=== PATIENT | male | born 1940 | race Two or more races ===

== ENCOUNTER 2024-04-13 22:39 | Inpatient (IN) | payer MEDICARE, OTHER ==
[~2024-04-13] VITALS: Ht 177.8 cm; Wt 72.6 kg
[2024-04-13 23:34] LABS: APPEARANCE,URINE CLEAR (CLEAR); BILIRUBIN,URINE NEGATIVE (NEGATIVE); BLOOD, URINE NEGATIVE Ery/uL (NEGATIVE); COLOR,URINE YELLOW (YELLOW); KETONES,URINE NEGATIVE (NEGATIVE); LEUKOCYTE ESTERASE ,URINE NEGATIVE (NEGATIVE); NITRITE, URINE NEGATIVE (NEGATIVE); PROTEIN,URINE NEGATIVE (NEGATIVE); UGLUCOSE NEGATIVE (NEGATIVE); UROBILINOGEN,URINE 0.2 EU/dL (0.2)
[2024-04-14 00:09] LABS: INR 1.18 (0.91-1.10); PROTHROMBIN TIME 12.4 SECS (9.2-11.1)
[2024-04-14 00:11] LABS: BASOPHILS # (AUTO) 0.1 K/uL (0.0-0.2); BASOPHILS % (AUTO) 0.3 % (0.0-2.0); EOSINOPHILS % (AUTO) 0.1 % (0.0-6.0); HEMATOCRIT 44 % (39-51); HEMOGLOBIN 14.9 g/dL (13.5-17.5); LYMPHOCYTES # (AUTO) 0.6 K/uL (0.8-4.8); MEAN CORPUSCULAR HEMOGLOBIN 32 PG (26.0-33.0); MEAN CORPUSCULAR HGB CONC 34 g/dl (31.0-36.0); MEAN CORPUSCULAR VOLUME 93 fL (80-96); MONOCYTES # (AUTO) 2.1 K/uL (0.1-1.30); MONOCYTES % (AUTO) 11.4 % (2.0-12.0); NEUTROPHILS # (AUTO) 15.7 K/uL (1.8-8.9); NEUTROPHILS % (AUTO) 85.2 % (43.0-81.0); PLATELET COUNT (AUTO) 127 K/uL (150-450); RED CELL DISTRIBUTION WIDTH 13.3 % (11.5-15.0); WHITE BLOOD COUNT (AUTO) 18.5 K/uL (4.3-11.0)
[2024-04-14 00:15] LABS: MAGNESIUM 3.1 mg/dL (1.8-2.4); PHOSPHORUS 5.9 mg/dL (2.5-4.9)
[2024-04-14 00:19] LABS: ALBUMIN 3.1 g/dL (3.4-5.0); BILIRUBIN,DIRECT 0.4 mg/dL (0.0-0.2); BILIRUBIN,TOTAL 1.6 mg/dL (0.2-1.0); CALCIUM, SERUM 8.6 mg/dL (8.5-10.1); CREATININE 6.7 mg/dL (0.6-1.3); POTASSIUM 5.8 mmol/L (3.5-5.1); TOTAL PROTEIN, SERUM 6.9 g/dL (6.4-8.2)
[2024-04-14] MEDS: IV NS 0.9% 500 ML BAG IV ONE (00:39)
[2024-04-14] MEDS ORDERED: FINA5TAB11 PO (03:07)
[2024-04-14] MEDS ORDERED: TAMS-12 PO (03:07)
[2024-04-14 04:00] VITALS: BP 135/89; TEMP 97.9; O2SAT 94
[2024-04-14 05:03] VITALS: BP 135/89; TEMP 97.9; O2SAT 94
[2024-04-14] MEDS: IV NS 0.9% 1,000 ML IV PRN (05:48)
[2024-04-14] MEDS ORDERED: ONDANSETRON HCL/PF 4 MG/2 ML VIAL IVP PRN (06:00)
[2024-04-14] MEDS ORDERED: ACETAMINOPHEN 325 MG TABLET PO PRN (06:00)
[2024-04-14 07:25] LABS: BASOPHILS % (AUTO) 0.3 % (0.0-2.0); EOSINOPHILS # (AUTO) 0.2 K/uL (0.0-0.7); EOSINOPHILS % (AUTO) 1.5 % (0.0-6.0); HEMATOCRIT 39 % (39-51); HEMOGLOBIN 13.6 g/dL (13.5-17.5); LYMPHOCYTES % (AUTO) 8.8 % (20.0-44.0); MEAN CORPUSCULAR HEMOGLOBIN 32 PG (26.0-33.0); MEAN CORPUSCULAR HGB CONC 34 g/dl (31.0-36.0); MEAN CORPUSCULAR VOLUME 92 fL (80-96); MONOCYTES # (AUTO) 1.7 K/uL (0.1-1.30); MONOCYTES % (AUTO) 15.3 % (2.0-12.0); NEUTROPHILS # (AUTO) 8.4 K/uL (1.8-8.9); NEUTROPHILS % (AUTO) 74.1 % (43.0-81.0); PLATELET COUNT (AUTO) 130 K/uL (150-450); RED BLOOD CELL COUNT(AUTO) 4.27 MIL/uL (4.5-6.0); RED CELL DISTRIBUTION WIDTH 13.3 % (11.5-15.0); WHITE BLOOD COUNT (AUTO) 11.4 K/uL (4.3-11.0)
[2024-04-14 08:00] VITALS: BP 126/73; TEMP 97.9; O2SAT 94
[2024-04-14 08:01] LABS: CALCIUM, SERUM 8.9 mg/dL (8.5-10.1); CREATININE 4.4 mg/dL (0.6-1.3); MAGNESIUM 2.9 mg/dL (1.8-2.4); PHOSPHORUS 5.8 mg/dL (2.5-4.9); POTASSIUM 4.8 mmol/L (3.5-5.1)
[2024-04-14 09:08] LABS: EOSINOPHILS % (MANUAL) 1 % (0-4); LYMPHOCYTES % (MANUAL) 9 % (16-48); MONOCYTES % (MANUAL) 13 % (0-11.0); NEUTROPHILS % (MANUAL) 77 (42-76)
[2024-04-14 09:09] LABS: ANISOCYTOSIS 1+; PLATELET ESTIMATE DECREASED
[2024-04-14] MEDS: IV 1/2NS 1000 ML 1,000 ML IV PRN (13:36)
[2024-04-14] MEDS: ENOXAPARIN SODIUM 30 MG/0.3 ML DISP.SYRIN SQ SCH (13:36)
[2024-04-14 16:00] VITALS: BP 145/75; TEMP 98.2; O2SAT 95
[2024-04-14 18:13] LABS: CALCIUM, SERUM 8.7 mg/dL (8.5-10.1); CREATININE 2.7 mg/dL (0.6-1.3); POTASSIUM 4.3 mmol/L (3.5-5.1)
[2024-04-14 18:15] LABS: CREATININE, URINE 60.7 MG/DL (30.0-125.0); URINE TOTAL PROTEIN 23.3 mg/dL (0-11.9)
[2024-04-14 21:02] VITALS: BP 148/72; TEMP 97.9; O2SAT 93
[2024-04-15 00:43] VITALS: BP 154/85; TEMP 98.2; O2SAT 93
[2024-04-15 03:53] VITALS: BP 132/81; TEMP 98.1; O2SAT 94
[2024-04-15 06:41] LABS: BASOPHILS # (AUTO) 0.1 K/uL (0.0-0.2); BASOPHILS % (AUTO) 1.1 % (0.0-2.0); EOSINOPHILS # (AUTO) 0.4 K/uL (0.0-0.7); EOSINOPHILS % (AUTO) 5.2 % (0.0-6.0); HEMATOCRIT 40 % (39-51); HEMOGLOBIN 13.6 g/dL (13.5-17.5); LYMPHOCYTES # (AUTO) 1.3 K/uL (0.8-4.8); LYMPHOCYTES % (AUTO) 15.4 % (20.0-44.0); MEAN CORPUSCULAR HEMOGLOBIN 32 PG (26.0-33.0); MEAN CORPUSCULAR HGB CONC 34 g/dl (31.0-36.0); MEAN CORPUSCULAR VOLUME 93 fL (80-96); MONOCYTES # (AUTO) 1.3 K/uL (0.1-1.30); MONOCYTES % (AUTO) 15.1 % (2.0-12.0); NEUTROPHILS # (AUTO) 5.3 K/uL (1.8-8.9); NEUTROPHILS % (AUTO) 63.2 % (43.0-81.0); PLATELET COUNT (AUTO) 154 K/uL (150-450); RED BLOOD CELL COUNT(AUTO) 4.31 MIL/uL (4.5-6.0); RED CELL DISTRIBUTION WIDTH 13.4 % (11.5-15.0); WHITE BLOOD COUNT (AUTO) 8.4 K/uL (4.3-11.0)
[2024-04-15 07:17] LABS: ALBUMIN 2.6 g/dL (3.4-5.0); BILIRUBIN,TOTAL 1.2 mg/dL (0.2-1.0); CALCIUM, SERUM 8.5 mg/dL (8.5-10.1); CREATININE 1.7 mg/dL (0.6-1.3); MAGNESIUM 2.2 mg/dL (1.8-2.4); PHOSPHORUS 3.4 mg/dL (2.5-4.9); POTASSIUM 4.1 mmol/L (3.5-5.1); TOTAL PROTEIN, SERUM 6.3 g/dL (6.4-8.2)
[2024-04-15 08:00] VITALS: BP 138/75; TEMP 98.1; O2SAT 95
[2024-04-15 12:00] VITALS: BP 131/97; TEMP 98.1; O2SAT 94
[2024-04-15 16:00] VITALS: BP 126/80; TEMP 98.2; O2SAT 94
[2024-04-15 20:00] VITALS: BP 149/69; TEMP 97.9; O2SAT 95
[2024-04-16] VITALS: BP 159/82; TEMP 98.1; O2SAT 98
[2024-04-16 04:00] VITALS: BP 150/80; TEMP 97.7; O2SAT 98
[2024-04-16 07:09] LABS: PTH, INTACT 18 pg/mL (15-65)
[2024-04-16 07:35] LABS: BASOPHILS # (AUTO) 0.1 K/uL (0.0-0.2); BASOPHILS % (AUTO) 1.1 % (0.0-2.0); EOSINOPHILS # (AUTO) 0.5 K/uL (0.0-0.7); EOSINOPHILS % (AUTO) 7.5 % (0.0-6.0); HEMATOCRIT 41 % (39-51); HEMOGLOBIN 13.7 g/dL (13.5-17.5); LYMPHOCYTES # (AUTO) 1.3 K/uL (0.8-4.8); LYMPHOCYTES % (AUTO) 19.9 % (20.0-44.0); MEAN CORPUSCULAR HEMOGLOBIN 32 PG (26.0-33.0); MEAN CORPUSCULAR HGB CONC 34 g/dl (31.0-36.0); MEAN CORPUSCULAR VOLUME 94 fL (80-96); MONOCYTES # (AUTO) 0.8 K/uL (0.1-1.30); MONOCYTES % (AUTO) 13.3 % (2.0-12.0); NEUTROPHILS # (AUTO) 3.7 K/uL (1.8-8.9); NEUTROPHILS % (AUTO) 58.2 % (43.0-81.0); PLATELET COUNT (AUTO) 162 K/uL (150-450); RED BLOOD CELL COUNT(AUTO) 4.32 MIL/uL (4.5-6.0); RED CELL DISTRIBUTION WIDTH 13.3 % (11.5-15.0); WHITE BLOOD COUNT (AUTO) 6.4 K/uL (4.3-11.0)
[2024-04-16 07:48] LABS: CALCIUM, SERUM 8.6 mg/dL (8.5-10.1); POTASSIUM 3.9 mmol/L (3.5-5.1)
[2024-04-16 08:00] VITALS: BP 143/79; TEMP 98.1; O2SAT 92
[2024-04-16 12:00] VITALS: BP 145/90; TEMP 97.7; O2SAT 95
[2024-04-17 06:10] LABS: *SPE ALBUMIN 2.9 g/dL (2.9-4.4); *SPE ALPHA-1-GLOBULIN 0.3 g/dL (0.0-0.4); *SPE ALPHA-2-GLOBULIN 0.8 g/dL (0.4-1.0); *SPE BETA GLOBULIN 0.7 g/dL (0.7-1.3); *SPE GLOBULIN, TOTAL 2.8 g/dL (2.2-3.9); *SPE M-SPIKE 0.2 g/dL (Not Observed); *SPE PROTEIN TOTAL 5.7 g/dL (6.0-8.5)
== END 2024-04-16 12:45 | disposition home health service (06) | DRG 725 ==
LOC: ER 22:41 → TELE 04-14 03:19
PROVIDERS: ADMIT Internal Medicine; ATTEND Internal Medicine
DX: N40.1 Benign prostatic hyperplasia with lower urinary tract symptoms (principal); N17.0 Acute kidney failure with tubular necrosis; E44.0 Moderate protein-calorie malnutrition; E87.1 Hypo-osmolality and hyponatremia; E87.20 Acidosis, unspecified; N13.39 Other hydronephrosis; N13.8 Other obstructive and reflux uropathy; N13.9 Obstructive and reflux uropathy, unspecified; E87.5 Hyperkalemia; E83.41 Hypermagnesemia; D64.9 Anemia, unspecified; D72.829 Elevated white blood cell count, unspecified; E83.42 Hypomagnesemia; E88.09 Other disorders of plasma-protein metabolism, not elsewhere classified; R33.8 Other retention of urine; E87.70 Fluid overload, unspecified; Z20.822 Contact with and (suspected) exposure to COVID-19; Z68.23 Body mass index [BMI] 23.0-23.9, adult; M89.8X9 Other specified disorders of bone, unspecified site
CPT/HCPCS: 36415; 71045-TC; 76770-TC; 80048-TC; 80053-TC; 80076-TC; 82550-TC; 82570-TC; 83735-TC; 83970; 84100-TC; 84155; 84165; 84300-TC; 85025-TC; 85730-TC; 87086-TC; 97110-TC; 97116-TC; 97530-TC; 97535-TC; A4223; G0378; J1650; J3490; J7030; J7040